=== PATIENT | male | born 1940 | race Caucasian/White ===

== ENCOUNTER → 2016-06-18 | Outpatient (CLI) | payer MEDICARE ==
--- NOTE | 2016-06-18 15:13 | REP ---
MRI CLEARANCE, FACIAL BONES, TWO VIEWS: HISTORY: Foreign body. There is no acute fracture, bone lesion or radiopaque foreign body. The sinuses are clear. IMPRESSION: There is no radiopaque foreign body. Signed by Pete Barreto MD 06/18/2016 03:20 P
--- NOTE | 2016-06-18 16:04 | REP ---
MRI THORACIC SPINE WITHOUT CONTRAST: HISTORY: Thoracic pain. A disc bulge is present at the T4-5 level. There is minimal effacement of the thecal sac without spinal cord compression. The T4 neural foramina are patent. A disc bulge is present at the T5-6 level. There is minimal effacement of the thecal sac without spinal cord compression. The T5 neural foramina are patent. A disc bulge is present at the T9-10 level. There is minimal effacement of the thecal sac without spinal cord compression. The T9 neural foramina are patent. A disc bulge is present at the T10-11 level. There is minimal effacement of the thecal sac without spinal cord compression. The T10 neural foramina are patent. A disc bulge is present at the T11-12 level. There is minimal effacement of the thecal sac without spinal cord compression. The T11 neural foramina are patent. There is no other disc bulge or herniation. The remaining neural foramina are patent. A small 1.3 mm syrinx is present in the spinal cord. This extends from the T5-6 level inferior to the T7-8 level. The spinal cord is normal in size. Increased signal intensity on T2-weighted images is present in the endplates of several mid and lower thoracic vertebral bodies. There are old compression fractures of the T7 through T11 vertebral bodies with minimal height loss . IMPRESSION: 1. Disc bulges at the T4-5, T5-6 and T9-10 through T11-12 levels without spinal cord compression. 2. Old compression fractures of the T7 through T11 vertebral bodies with minimal height loss. Signed by Pete Barreto MD 06/18/2016 04:07 P
== END ==
LOC: M RAD 12:47
PROVIDERS: ATTEND Psychiatry & Neurology Neurology
DX: M51.24 Other intervertebral disc displacement, thoracic region (principal); Z87.81 Personal history of (healed) traumatic fracture; G95.0 Syringomyelia and syringobulbia; R20.2 Paresthesia of skin

== ENCOUNTER → 2017-10-14 | Outpatient (REF) | payer MEDICARE ==
[2017-10-16 00:06] LABS: Lyme Disease IgG/IgM Antibodie <0.91 ISR (0.00-0.90); Lyme Disease IgM Ab Quantitati <0.80 index (0.00-0.79)
== END ==
LOC: M LABNEURO 11:21
DX: Z11.9 Encounter for screening for infectious and parasitic diseases, unspecified (principal)
CPT/HCPCS: 36415

== ENCOUNTER → 2018-10-05 | Outpatient (REF) | payer MEDICARE ==
[2018-10-05 16:16] LABS: FOLATE 9.6 NG/ML
== END ==
LOC: M LABNEURO 13:06
PROVIDERS: ATTEND Psychiatry & Neurology Neurology
DX: D51.9 Vitamin B12 deficiency anemia, unspecified (principal)